=== PATIENT | male | born 1950 | race Caucasian/White ===

== ENCOUNTER 2016-11-02 11:23 | Emergency (ER) | payer MEDICARE ==
[~2016-11-02] VITALS: Ht 182.9 cm; Wt 79.5 kg
[~2016-11-02 11:23] MED LIST: ALBUTEROL INH 0.3 ML AERO NEB; AMOXICILLIN875 MG PO; ASPIR 8181 MG PO; CYMBALTA60 MG PO; EQL FISH OIL 1,1 CAP; FLAX SEED OIL1000 MG; HYDROCODONE/APA1 TA PO; IBUPROFEN200 M1 PO; MULTIVITAMIN1 TAB PO; NEXIUM40 MG PO; NIACIN; NORCO 5-325 TA1 EACH PO; PHENERGAN12.5 M2 PR; PREDNISONE20 MG PO; PRILOSEC20 MG; STOOL SOFTENER100 MG; ULTRAM50 M1 PO; VITAMIN C PO; VITAMIN C2000 MG; ZOCOR40 MG PO
[2016-11-02] MEDS ORDERED: ATIVAN0.5 M1 PO (11:40)
[2016-11-02] MEDS ORDERED: PRAMIPEXOLE DI0.5 M1 PO (11:40)
[2016-11-02] MEDS ORDERED: OMEPRAZOLE40 M2 PO (11:41)
[2016-11-02] MEDS ORDERED: MEGESTROL400 MG/11 PO (11:41)
[2016-11-02] MEDS ORDERED: NEURONTIN300 M1 PO (13:21)
== END 2016-11-02 14:03 ==
LOC: EDMED → EDBD 11:23 → EDMED 11:23
DX: M79.605 Pain in left leg (principal); M79.604 Pain in right leg; E78.5 Hyperlipidemia, unspecified; F17.210 Nicotine dependence, cigarettes, uncomplicated; Z90.49 Acquired absence of other specified parts of digestive tract
CPT/HCPCS: J1170; J2405